=== PATIENT | female | born 1965 ===

== ENCOUNTER 2019-01-13 18:48 | Emergency (ER) | payer OTHER ==
[~2019-01-13] VITALS: Ht 170.2 cm; Wt 113.4 kg
[2019-01-13] MEDS ORDERED: SYNTHROID175 MCG (18:55)
[2019-01-14] MEDS ORDERED: OMEPRAZOLE40 MG PO (01:30)
[2019-01-14] MEDS ORDERED: CIPRO500 MG PO (01:30)
[2019-01-14] MEDS ORDERED: FLAGYL500MG PO (01:30)
== END 2019-01-14 01:40 | disposition home or self-care (01) ==
LOC: ER 18:48
DX: K57.92 Diverticulitis of intestine, part unspecified, without perforation or abscess without bleeding (principal); N20.0 Calculus of kidney; R10.31 Right lower quadrant pain